=== PATIENT | male | born 1975 | race Caucasian/White ===

== ENCOUNTER 2016-08-13 16:38 | Inpatient (IN) | payer BC ==
[~2016-08-13] VITALS: Ht 190.5 cm; Wt 108.4 kg
[2016-08-13 17:02] LABS: HEMATOCRIT 43.5 % (38.0-50.0); MCH 27.9 PG (29.0-34.0); MCHC 34.3 G/DL (30.0-36.0); MCV 81.3 FL (86-99); MEAN PLAT.VOLUME 10.8 uM^3 (9.0-12.4); PLATELET COUNT 209 K/uL (156-360); RBC DIS.WIDTH-CV 13.3 % (11.8-14.6); RBC DIS.WIDTH-SD 38.9 % (39-53); RED BLOOD COUNT 5.35 M/uL (4.00-5.50); WHITE BLOOD COUNT 15.1 K/uL (4.1-10.2)
[2016-08-13 17:10] LABS: CHLORIDE 106 mEq/L (99-109); POTASSIUM 3.7 mEq/L (3.7-5.4); SODIUM 138 mEq/L (136-147)
[2016-08-13 17:11] LABS: GLUCOSE 107 mg/dL (70-99)
[2016-08-13] MEDS ORDERED: LITHIUM (17:12)
[2016-08-13 17:13] LABS: ANION GAP 12 MEQ/L (2-14)
[2016-08-13] MEDS ORDERED: OLANZAPINE (17:13)
[2016-08-13 17:14] LABS: SERUM ETHYL ALCOHOL < 10 mg/dL
[2016-08-13 17:15] LABS: GFR ESTIMATE (CALCULATED) > 59 mL/min/
[2016-08-13 17:17] LABS: UREA NITROGEN (BUN) 17 mg/dL (9-23)
[2016-08-13 17:18] LABS: SALICYLATE < 5.0 MG/DL (15-30)
[2016-08-13 20:36] LABS: AMPHETAMINE NEGATIVE (500 ng/mL); BARBITURATES NEGATIVE (200 ng/mL); BENZODIAZEPINES NEGATIVE (150 ng/mL); COCAINE NEGATIVE (150 ng/mL); INTERNAL CONTROLS VALID? YES; METHADONE NEGATIVE (200 ng/mL); METHAMPHETAMINE NEGATIVE (500 ng/mL); OPIATES (MORPHINE) NEGATIVE (100 ng/mL); OXYCODONE NEGATIVE (100 ng/mL); PHENCYCLIDINE NEGATIVE (25 ng/mL); PROPOXYPHENE NEGATIVE (300 ng/mL); THC CANNABINOIDS NEGATIVE (50 ng/mL); TRICYCLIC ANTIDEPRESSANTS NEGATIVE (300 ng/mL)
[2016-08-14 00:28] VITALS: BP 102/50
[2016-08-14] MEDS ORDERED: LITHIUM CARBON300 M2 PO (06:06)
[2016-08-14] MEDS ORDERED: OLANZAPINE2.5 MG PO (06:08)
[2016-08-14 08:04] VITALS: BP 143/82
[2016-08-14 15:42] VITALS: BP 129/67
[2016-08-15 07:53] VITALS: BP 130/72
[2016-08-15 15:44] VITALS: BP 137/83
[2016-08-16 09:31] VITALS: BP 124/77
[2016-08-16 15:19] VITALS: BP 136/73
[2016-08-17 07:40] VITALS: BP 122/65
[2016-08-17 15:31] VITALS: BP 134/80
[2016-08-18 08:14] VITALS: BP 117/71
[2016-08-18 15:09] VITALS: BP 126/67
[2016-08-19 07:44] VITALS: BP 124/77
[2016-08-19 15:50] VITALS: BP 134/74
[2016-08-20 08:10] VITALS: BP 126/69
[2016-08-20 15:13] VITALS: BP 145/86
[2016-08-21 07:47] VITALS: BP 125/77
[2016-08-21] MEDS ORDERED: OLANZAPINE10 MG PO (11:08)
[2016-08-21] MEDS ORDERED: LITHIUM CARBON300 M2 PO (11:08)
== END 2016-08-21 12:45 | disposition home or self-care (01) | DRG 885 ==
LOC: EME → EDBD 16:38 → EDOF 22:31 → 1WEST 22:31
PROVIDERS: Emergency Medicine
DX: F31.13 Bipolar disorder, current episode manic without psychotic features, severe (principal)
CPT/HCPCS: 80048; 80178; 85027; 90837; 97150 GO; 97165 GO; 99281; 99285; G0480; J1200; J1630; J2060